=== PATIENT | male | born 1970 | race Caucasian/White ===

== ENCOUNTER 2021-02-23 07:49 | Emergency (ER) | payer OTHER ==
[~2021-02-23] VITALS: Ht 172.7 cm; Wt 77.1 kg
[2021-02-23] MEDS ORDERED: CHILDREN'S ASPI81 MG (07:54)
[2021-02-23] MEDS ORDERED: DICLOFENAC POTA50 MG PO (11:10)
[2021-02-23] MEDS ORDERED: ORPHENADRINE C100 MG PO (11:10)
== END 2021-02-23 11:13 | disposition home or self-care (01) ==
LOC: ER 07:49
DX: R07.89 Other chest pain (principal)

== ENCOUNTER 2021-07-05 11:38 | Emergency (ER) | payer OTHER ==
[~2021-07-05] VITALS: Ht 172.7 cm; Wt 79.8 kg
[~2021-07-05 11:38] MED LIST: CHILDREN'S ASPI81 MG; DICLOFENAC POTA50 MG PO; ORPHENADRINE C100 MG PO
== END 2021-07-05 14:04 | disposition home or self-care (01) ==
LOC: ER 11:38
DX: M79.631 Pain in right forearm (principal)

== ENCOUNTER 2023-02-28 19:23 | Inpatient (IN) | payer OTHER ==
[~2023-02-28] VITALS: Ht 172.7 cm; Wt 82.6 kg
== END 2023-03-03 16:59 | disposition home or self-care (01) | DRG 343 ==
LOC: ER 19:23 → SEC-K 23:10 → SURH 03-01 20:20
PROVIDERS: Surgery; ADMIT Specialist; ATTEND Specialist
PROC: 0DTJ4ZZ Resection of Appendix, Percutaneous Endoscopic Approach (ICD-10-PCS; principal; 2023-03-01 17:00)
DX: K35.30 Acute appendicitis with localized peritonitis, without perforation or gangrene (principal)

== ENCOUNTER 2024-06-10 00:10 | Emergency (ER) | payer OTHER ==
[~2024-06-10] VITALS: Ht 172.7 cm; Wt 80.7 kg
[2024-06-10] MEDS ORDERED: ADULT LOW DOSE81 M1 PO (00:18)
[2024-06-10] MEDS ORDERED: ORPHENADRINE CITRATE 30 MG/ML AMPUL IV STA (01:49)
[2024-06-10 02:34] LABS: INR 1.04; PARTIAL THROMBOPLASTIN TIME 29.5 SECONDS (22.0-34.0); PROTHROMBIN TIME 11.3 SECONDS (9.0-11.5)
[2024-06-10 02:39] LABS: ALBUMIN 3.9 gm/dL (3.4-5.0); BILIRUBIN TOTAL 0.65 mg/dL (0.3-1.2); CALCIUM 9.1 mg/dL (8.5-10.1); CREATININE SERUM 1.04 mg/dL (0.70-1.30); GFR 73.87; GLOBULINA 3.6 G/DL (2.4-3.5); POTASSIUM 4.15 mEq/L (3.5-5.1); TOTAL PROTEIN 7.5 gm/dL (6.4-8.2)
[2024-06-10 03:04] LABS: MEAN CORPUSCULAR HEMOGLOBIN 31.8 pg (27.00-32.0); MEAN CORPUSCULAR HGB CONC 34.2 g/dl (32.0-36.0); PLATELET COUNT 172 K/uL (150-450); RED BLOOD COUNT 4.73 M/uL (4.00-6.00); RED CELL DISTRIBUTION WIDTH 14.1 % (11.5-14.5)
[2024-06-10] MEDS ORDERED: NORFLEX100MG PO (05:29)
== END 2024-06-10 05:42 ==
LOC: ER → EDBD 00:12 → ER 00:12
PROVIDERS: General Practice
DX: R53.81 Other malaise (principal); R07.89 Other chest pain

== ENCOUNTER 2024-09-17 06:44 | Emergency (ER) | payer OTHER ==
[~2024-09-17] VITALS: Ht 172.7 cm; Wt 79.8 kg
[~2024-09-17 06:44] MED LIST changes: +ADULT LOW DOSE81 M1 PO; +NORFLEX100MG PO
[2024-09-17] MEDS ORDERED: KETOROLAC TROMETHAMINE 60 MG VIAL IM ONE ×2 (08:45→08:51)
[2024-09-17] MEDS ORDERED: ORPHENADRINE CITRATE 30 MG/ML AMPUL IM ONE (08:45)
[2024-09-17] MEDS ORDERED: ORPHENADRINE CITRATE 30 MG/ML AMPUL ONE (08:51)
[2024-09-17] MEDS ORDERED: NORFLEX100MG PO (10:16)
[2024-09-17] MEDS ORDERED: KETO10TA2 PO (10:16)
== END 2024-09-17 10:50 | disposition home or self-care (01) ==
LOC: ER 06:46
DX: M25.511 Pain in right shoulder (principal)

== ENCOUNTER 2025-05-11 10:43 | Emergency (ER) | payer OTHER ==
[~2025-05-11] VITALS: Ht 172.7 cm; Wt 79.4 kg
[~2025-05-11 10:43] MED LIST changes: +KETO10TA2 PO
[2025-05-11] MEDS ORDERED: KETOROLAC TROMETHAMINE 60 MG VIAL IM ONE ×2 (12:00→12:09)
[2025-05-11] MEDS ORDERED: ORPHENADRINE CITRATE 30 MG/ML AMPUL IM ONE (12:00)
[2025-05-11] MEDS ORDERED: ORPHENADRINE CITRATE 30 MG/ML AMPUL ONE (12:09)
== END 2025-05-11 13:27 | disposition home or self-care (01) ==
LOC: ER 10:43
DX: M77.8 Other enthesopathies, not elsewhere classified (principal); M75.31 Calcific tendinitis of right shoulder